=== PATIENT | female | born 1965 | race Caucasian/White ===

== ENCOUNTER 2017-12-13 14:46 | Emergency (ER) | payer SELFPAY ==
[2017-12-13 16:40] LABS: CALCIUM 8.7 mg/dL (8.5-10.3); CREATININE 0.6 mg/dL (0.4-1.0)
[2017-12-13 16:46] LABS: BASOPHILS # (AUTO) 0.1 10^3/uL (0.0-0.1); BASOPHILS % (AUTO) 0.8 %; EOSINOPHILS # (AUTO) 0.1 10^3/uL (0.0-0.7); EOSINOPHILS % (AUTO) 1.4 %; HGB - HEMOGLOBIN 9.9 g/dL (12.0-16.0); LYMPHOCYTES % (AUTO) 19.8 %; MEAN CORPUSCULAR HEMOGLOBIN 16.4 pg (27.0-31.0); MEAN CORPUSCULAR HGB CONC 29.9 g/dL (32.0-36.0); MEAN CORPUSCULAR VOLUME 54.7 fL (81.0-99.0); MEAN PLATELET VOLUME 8.6 fL (7.9-10.8); MONOCYTES # (AUTO) 0.4 10^3/uL (0.0-1.0); MONOCYTES % (AUTO) 4.4 %; NEUTROPHILS # (AUTO) 7.3 10^3/uL (1.5-6.6); NEUTROPHILS % (AUTO) 73.6 %; PLT - PLATELET COUNT 249 10^3/uL (130-450); RED BLOOD COUNT 6.07 10^6/uL (4.20-5.40); RED CELL DISTRIBUTION WIDTH 19.5 % (12.0-15.0); WHITE BLOOD COUNT 9.9 x10^3/uL (4.8-10.8)
--- NOTE | 2017-12-13 16:49 | CT Preliminary Report ---
Exam: CT HEAD W/O IMPRESSION: Negative nonenhanced head CT. [facility] SITE ID: [id number]
--- NOTE | 2017-12-13 16:49 | CT Report ---
EXAM: CT HEAD EXAM DATE: 12/13/2017 04:37 PM. CLINICAL HISTORY: R face droop, L arm weakness. COMPARISON: None. TECHNIQUE: Multiaxial CT images were obtained from the foramen magnum to the vertex. Reformats: Coron al. IV contrast: None. In accordance with CT protocol optimization, one or more of the following dose reduction techniques w ere utilized for this exam: automated exposure control, adjustment of mA and/or KV based on patient s ize, or use of iterative reconstructive technique. FINDINGS: Parenchyma: No intraparenchymal hemorrhage. No evidence of mass, midline shift, or CT findings of inf arction. Singh-white differentiation is distinct. Extraaxial Spaces: No subdural or epidural collections identified. Ventricles: Normal in size and position. Sinuses and Orbits: Imaged paranasal sinuses, orbits, and mastoids show no significant abnormality. Bones: No evidence of fracture or calvarial defect. Other: None. IMPRESSION: Negative nonenhanced head CT. [facility] Referring Provider Line: [phone] SITE ID: [id number]
[2017-12-13 17:25] LABS: PLATELET ESTIMATE, MANUAL NORMAL (130-450,000) (NORMAL); PLATELET MORPHOLOGY 1+ GIANT PLATELETS (NORMAL)
--- NOTE | 2017-12-13 18:28 | ED Physician Documentation ---
History of Present Illness - Stated complaint Stated Complaint: FACIAL NUMBNESS,SWELLING - Chief complaint Chief Complaint: Neuro - Additonal information Additional information: hx from pt family translating used the interpretor table but hard to hear even with volume turned up and pt had an easier time communicating through family she states she had twitching to her right cheek a week or two ago then better last night developed weakness to her R \\face - unable to fully close eye, some tearing, trouble chewing also a R sided GILES that feels like "a brain freeze" this has presisted overnight and today she also says her L arm was numb for 1 hr yesterday but not any longer, no ext weakness pmxh DM but she has no PMD so is taking no meds Review of Systems Constitutional: denies: Fever, Chills Cardiac: denies: Chest pain / pressure, Palpitations Respiratory: denies: Dyspnea, Cough GI: denies: Abdominal Pain : denies: Now EGA Musculoskeletal: denies: Neck pain Neurologic: reports: Focal weakness (R face), Numbness (L arm for 1 hr yesterday not today), Headache. denies: Head injury Endocrine: denies: Easy bruising / bleeding Immunocompromised: denies: Immunocompromised PD PAST MEDICAL HISTORY - Past Medical History Past Medical History: No Endocrine/Autoimmune: Type 2 diabetes - Past Surgical History Past Surgical History: No - Present Medications Home Medications: Ambulatory Orders Medication Instructions Recorded Confirmed metFORMIN [Glucophage] 500 mg PO BIDWM #60 tablet 12/13/17 predniSONE [Deltasone] 60 mg PO DAILY 7 Days #18 tablet 12/13/17 - Allergies Allergies/Adverse Reactions: Allergies Allergy/AdvReac Type Severity Reaction Status Date / Time No Known Drug Allergies Allergy Verified 04/30/14 15:23 - Social History Does the pt smoke?: No Smoking Status: Never smoker Does the pt drink ETOH?: No Does the pt have substance abuse?: No - Immunizations Immunizations are current?: Yes - POLST Patient has POLST: No PD ED PE NORMAL - Vitals Vital signs reviewed: Yes - General General: Alert and oriented X 3 - HEENT HEENT: PERRL, EOMI, Other (globes soft, pupils reactive) - Neck Neck: Supple, no meningeal sign - Cardiac Cardiac: RRR - Respiratory Respiratory: No respiratory distress, Clear bilaterally - Abdomen Abdomen: Soft, Non tender - Neuro Neuro: Alert and oriented X 3. No: No motor deficit (R facial droop including forehead) Eye Opening: Spontaneous Motor: Obeys Commands Verbal: Oriented GCS Score: 15 Results - Vitals Vitals: Vital Signs - 24 hr 12/13/17 12/13/17 12/13/17 14:59 17:40 18:58 Temperature 36.5 C 36.6 C 36.7 C Heart Rate 84 79 79 Respiratory 14 16 20 Rate Blood Pressure 154/71 H 163/74 H 167/91 H O2 Saturation 99 99 98 Oxygen O2 Source Room air - EKG (time done) 1647 Rate: Rate (enter#) (87) Rhythm: NSR Ischemia: Other (slightly flattened T waves diffusely and isolated inv T wave in III) - Labs Labs: Laboratory Tests 12/13/17 12/13/17 12/13/17 16:20 16:20 16:20 WBC 9.9 RBC 6.07 H Hgb 9.9 L Hct 33.2 L MCV 54.7 L MCH 16.4 L MCHC 29.9 L RDW 19.5 H Plt Count 249 MPV 8.6 Neut # 7.3 H Lymph # 2.0 [place] # 0.4 Eos # 0.1 Baso # 0.1 Absolute Nucleated RBC 0.00 Nucleated RBC % 0.0 Manual Slide Review Indicated Platelet Estimate NORMAL (130-450,000) Platelet Morphology 1+ GIANT PLATELETS RBC Morph Micro Appear 3+ MICROCYTOSIS ESR 13 Sodium 135 Potassium 3.8 Chloride 100 L Carbon Dioxide 25 Anion Gap 10.0 BUN 10 Creatinine 0.6 Estimated GFR (MDRD) 106 Glucose 304 H Calcium 8.7 Slides for Path Review Indicated - Rads (name of study) CTH Radiology: See rad report (normal) PD MEDICAL DECISION MAKING - ED course ED course: exam at this time is very c/w [place] but pt reported 1 hr of L arm numbness yesterday raised concern of a central process so got CTH which was neg MRI would have higher sensitivity but not available at this time considered obs for MRI but exam with forehead weakness is such a classic [place] do not feel that is needed feel can dc with outpt neuro follow up also her DM is out of control because she is not on meds so will rx metformin and refer to [facility] for ongoing care and noted to be anemic and work up - no old to compare - states hx of - path slide pending - will def need follow up for results which will not be available tonight Departure - Departure Disposition: 01 Home, Self Care Clinical Impression: Vásquez's palsy, Hyperglycemia Anemia Qualifiers: Anemia type: unspecified type Qualified Code(s): D64.9 - Anemia, unspecified Condition: Good Instructions: ED [place] Palsy, ED Hyperglycemia Diabetic Follow-Up: [facility] [Provider Group] Colleen Seo MD [Physician No Access] - ( ) Prescriptions: metFORMIN [Glucophage] 500 mg PO BIDWM #60 tablet predniSONE [Deltasone] 60 mg PO DAILY 7 Days #18 tablet Print Language: Luxembourgish Comments: The CT scan is fine - no tumor or stroke is seen If the symptoms do not resolve in three weeks or if any other numbness or weakness develops you will need further work up such as a MRI and angiograms I have prescribed steroids to help decrease the nerve inflammation and hopefully clear the symptoms sooner However, you also have diabetes and your blood sugar is very high because you are not on medications for diabetes And the steroids are going to make the blood sugar go even higher So I have prescribed metformin which you need to take twice a day And lastly you are anemic. We don't have any old labs to compare so i don't know if it is new. The lab is running is And then you need to follow up with [facility] about the diabetes and anemia and get the results of the blood tests that are still running to get more information about your anemia - it is very important that you get these results
[2017-12-13] MEDS ORDERED: metFORMIN 500 MG TABLET PO STA (19:06)
[2017-12-13] MEDS ORDERED: predniSONE 20 MG TABLET PO STA (19:06)
[2017-12-13 19:32] VITALS: BP 156/80
== END 2017-12-13 19:31 | disposition home or self-care (01) ==
LOC: ED 14:46
DX: G51.0 Bell's palsy (principal); E11.65 Type 2 diabetes mellitus with hyperglycemia; D64.9 Anemia, unspecified; Z79.84 Long term (current) use of oral hypoglycemic drugs
CPT/HCPCS: 36415; 70450; 80048; 85025; 85651; 93005; 99283; 99284; A9270; J7512

== ENCOUNTER 2019-07-16 12:50 | Emergency (ER) | payer SELFPAY ==
[2019-07-16 13:00] VITALS: BP 147/73
[2019-07-16] MEDS ORDERED: BUFFERED LIDOCAINE 10 ML SYRINGE SUBQ STA (14:39)
[2019-07-16] MEDS ORDERED: CLINDAMYCIN 150 MG CAPSULE PO STA (14:39)
--- NOTE | 2019-07-16 14:41 | ED Physician Documentation ---
History of Present Illness - Stated complaint Stated Complaint: FACE SWELLING - Chief complaint Chief Complaint: Heent - History obtained from History obtained from: Patient (About 2 days ago she developed what she thought was a pimple above her lip on the right. She popped it and some pus came out yesterday, but is developed more facial swelling since then. She is a controlled type II diabetic. She denies fevers or chills.) Review of Systems Constitutional: denies: Fever, Chills, Myalgias, Fatigue, Weight Loss GI: reports: Reviewed and negative : reports: Reviewed and negative PD PAST MEDICAL HISTORY - Past Medical History Past Medical History: Yes Endocrine/Autoimmune: Type 2 diabetes - Past Surgical History Past Surgical History: No - Present Medications Home Medications: Ambulatory Orders Medication Instructions Recorded Confirmed Valacyclovir HCl [Valtrex] 1,000 mg PO TID #21 tablet 12/13/17 metFORMIN [Glucophage] 500 mg PO BIDWM #60 tablet 12/13/17 predniSONE [Deltasone] 60 mg PO DAILY 7 Days #18 tablet 12/13/17 Clindamycin HCl [Clindamycin 300MG 300 mg PO Q6H #28 capsule 07/16/19 CAP] - Allergies Allergies/Adverse Reactions: Allergies Allergy/AdvReac Type Severity Reaction Status Date / Time No Known Drug Allergies Allergy Verified 07/16/19 12:57 - Social History Does the pt smoke?: No Smoking Status: Never smoker Does the pt drink ETOH?: No Does the pt have substance abuse?: No - Immunizations Immunizations are current?: Yes - POLST Patient has POLST: No PD ED PE NORMAL - Vitals Vital signs reviewed: Yes - General General: Alert and oriented X 3, No acute distress - HEENT HEENT: PERRL, EOMI, Other (There is a small abscess measuring less than a centimeter around but with still some fluctuance above the right upper lip with some reactive facial swelling down to the middle part of the mandible on the right.) - Neck Neck: Supple, no meningeal sign, No bony TTP - Neuro Neuro: Alert and oriented X 3, Normal speech Results - Vitals Vitals: Vital Signs - 24 hr 07/16/19 12:57 Temperature 36.6 C Heart Rate 85 Respiratory 15 Rate Blood Pressure 147/73 H O2 Saturation 98 Oxygen O2 Source Room air Procedures - Abscess I&D (location) face, R upper lip Preparation: Alcohol, Lidocaine 1% Incision: Incised with scalpel, Purulent drainage, Loculations broken, Culture obtained. No: Packed (too small) Other: Pt tolerated well, Dressing applied, Antibiotic prescribed Departure - Departure Disposition: 01 Home, Self Care Clinical Impression: Facial abscess Condition: Good Record reviewed to determine appropriate education?: Yes Instructions: ED Abscess IandD Prescriptions: Clindamycin HCl [Clindamycin 300MG CAP] 300 mg PO Q6H #28 capsule Comments: We are performing a wound culture, the results should be done in 48-72 hours. If antibiotic change is necessary we will call you. Return if worse in the meantime, especially if you develop increased pain, fevers, cannot keep down the medication. Otherwise follow-up with your physician (or return here) in approximately 2-3 days.
== END 2019-07-16 15:35 | disposition home or self-care (01) ==
LOC: ED 12:50
DX: L02.01 Cutaneous abscess of face (principal); E11.9 Type 2 diabetes mellitus without complications; Z79.84 Long term (current) use of oral hypoglycemic drugs
CPT/HCPCS: 10060; 87070; 87181; 87205; 99283; A9270

== ENCOUNTER 2020-04-14 10:32 | Emergency (ER) | payer SELFPAY ==
[2020-04-14] MEDS ORDERED: DEXAMETHASONE 10 MG/ML VIAL PO STA (12:00)
[2020-04-14] MEDS ORDERED: CHERRY SYRUP 10 ML UDC PO ONE (12:00)
[2020-04-14] MEDS ORDERED: KETOROLAC 60 MG/2 ML VIAL IM STA (12:01)
--- NOTE | 2020-04-14 12:04 | ED Physician Documentation ---
PD HPI BACK PAIN - Stated complaint Stated Complaint: PAIN IN LOWER BACK LEFT SIDE - Chief complaint Chief Complaint: Back Pain - History obtained from History obtained from: Patient, Family - History of Present Illness Timing - onset: How many weeks ago (2) Timing - duration: Weeks (2) Timing - details: Gradual onset, Still present, Waxing and waning Location: Lower, Left Quality: Spasm, Sharp, Similar to prior episodes Associated symptoms: No: Fever, Weakness, Numbness, Incontinent of urine, Unable to urinate, Hematuria, Incontinent of stool Improves with: Rest, Position Worsened by: Movement Similar symptoms before: Diagnosis (sciatica) Recently seen: Not recently seen - Additional information Additional information: Previously well 54-year-old female is developed some pain in her left lower back radiating down her leg and making her leg numb. She has not any difficulty with her bowel or her bladder she has had this happen to her once previously. Review of Systems Constitutional: denies: Fever Nose: denies: Congestion Throat: denies: Sore throat Respiratory: denies: Dyspnea, Cough GI: denies: Vomiting PD PAST MEDICAL HISTORY - Past Medical History Endocrine/Autoimmune: Type 2 diabetes - Past Surgical History Past Surgical History: No - Present Medications Home Medications: Ambulatory Orders Medication Instructions Recorded Confirmed Valacyclovir HCl [Valtrex] 1,000 mg PO TID #21 tablet 12/13/17 metFORMIN [Glucophage] 500 mg PO BIDWM #60 tablet 12/13/17 predniSONE [Deltasone] 60 mg PO DAILY 7 Days #18 tablet 12/13/17 Clindamycin HCl [Clindamycin 300MG 300 mg PO Q6H #28 capsule 07/16/19 CAP] Cyclobenzaprine [Flexeril] 10 mg PO TID PRN #20 tablet 04/14/20 Hydrocodone/Acetaminophen 1 - 2 each PO Q6H PRN #14 tablet 04/14/20 [Hydrocodon-Acetaminophen 5-325] - Allergies Allergies/Adverse Reactions: Allergies Allergy/AdvReac Type Severity Reaction Status Date / Time No Known Drug Allergies Allergy Verified 07/16/19 12:57 - Social History Does the pt smoke?: No Smoking Status: Never smoker Does the pt drink ETOH?: No Does the pt have substance abuse?: No - Immunizations Immunizations are current?: Yes - POLST Patient has POLST: No PD ED PE NORMAL - Vitals Vital signs reviewed: Yes (tachy and hypertensive ) - General General: No acute distress, Well developed/nourished - HEENT HEENT: Atraumatic, PERRL, EOMI - Respiratory Respiratory: No respiratory distress - Back Back: No CVA TTP, No spinal TTP, Other (There is tenderness to the paraspinous muscles on the left side extending down into the sciatic notch.) - Derm Derm: Normal color, Warm and dry, No rash - Extremities Extremities: No deformity, No edema, No calf tenderness / cord - Neuro Neuro: Alert and oriented X 3, electrician master 2-12 intact, No motor deficit, Normal speech Eye Opening: Spontaneous Motor: Obeys Commands Verbal: Oriented GCS Score: 15 - Psych Psych: Normal mood, Normal affect Results - Vitals Vitals: Vital Signs - 24 hr 04/14/20 10:35 Temperature 36.2 C L Heart Rate 115 H Respiratory 18 Rate Blood Pressure 172/84 H O2 Saturation 97 Oxygen O2 Source Room air PD MEDICAL DECISION MAKING - ED course Complexity details: reviewed results, re-evaluated patient, considered differential, d/w patient, d/w family ED course: 54-year-old female with acute sciatica is administered a dexamethasone 10 mg orally and 60 mg of Toradol IM. Departure - Departure Disposition: 01 Home, Self Care Clinical Impression: Sciatica Qualifiers: Laterality: left Qualified Code(s): M54.32 - Sciatica, left side Condition: Stable Instructions: ED Sciatica Follow-Up: [facility] [place] [Provider Group] Prescriptions: Cyclobenzaprine [Flexeril] 10 mg PO TID PRN #20 tablet PRN Reason: Spasms Hydrocodone/Acetaminophen [Hydrocodon-Acetaminophen 5-325] 1 - 2 each PO Q6H PRN #14 tablet PRN Reason: pain
[2020-04-14 12:25] VITALS: BP 172/93
== END 2020-04-14 12:32 | disposition home or self-care (01) ==
LOC: ED 10:32
DX: M54.32 Sciatica, left side (principal); E11.9 Type 2 diabetes mellitus without complications; Z79.84 Long term (current) use of oral hypoglycemic drugs
CPT/HCPCS: 96372; 99283; 99284; A9270

== ENCOUNTER 2020-04-22 18:35 | Emergency (ER) | payer SELFPAY ==
[2020-04-22] MEDS ORDERED: predniSONE 20 MG TABLET PO STA (19:23)
[2020-04-22] MEDS ORDERED: MELOXICAM 7.5 MG TABLET PO STA (19:38)
--- NOTE | 2020-04-22 19:43 | ED Physician Documentation ---
PD HPI BACK PAIN - Stated complaint Stated Complaint: BACK PX - Chief complaint Chief Complaint: Back Pain - History obtained from History obtained from: Patient, Family - History of Present Illness Timing - onset: How many weeks ago (1) Timing - duration: Weeks (1) Timing - details: Gradual onset Pain level max: 7 Pain level now: 6 Location: Lower, Left Quality: Pain, Spasm, Similar to prior episodes Associated symptoms: No: Fever, Weakness, Numbness, Incontinent of urine, Unable to urinate, Hematuria, Incontinent of stool Improves with: Rest Worsened by: Movement Contributing factors: Out of meds. No: Lifting, Twisting, Trauma, Anticoagulated, Cancer, IVDA Recently seen: Emergency Dept (sciatica) Review of Systems Constitutional: denies: Fever, Chills Respiratory: denies: Cough GI: denies: Vomiting, Diarrhea : denies: Dysuria, Frequency, Hesitancy, Now EGA Skin: denies: Rash Musculoskeletal: denies: Neck pain, Back pain Neurologic: denies: Headache PD PAST MEDICAL HISTORY - Past Medical History Past Medical History: Yes Endocrine/Autoimmune: Type 2 diabetes - Past Surgical History Past Surgical History: No - Present Medications Home Medications: Ambulatory Orders Medication Instructions Recorded Confirmed Valacyclovir HCl [Valtrex] 1,000 mg PO TID #21 tablet 12/13/17 metFORMIN [Glucophage] 500 mg PO BIDWM #60 tablet 12/13/17 predniSONE [Deltasone] 60 mg PO DAILY 7 Days #18 tablet 12/13/17 Clindamycin HCl [Clindamycin 300MG 300 mg PO Q6H #28 capsule 07/16/19 CAP] Cyclobenzaprine [Flexeril] 10 mg PO TID PRN #20 tablet 04/14/20 Hydrocodone/Acetaminophen 1 - 2 each PO Q6H PRN #14 tablet 04/14/20 [Hydrocodon-Acetaminophen 5-325] Meloxicam [Mobic] 15 mg PO DAILY PRN #20 tablet 04/22/20 predniSONE [Deltasone] 10 mg PO [id number] #42 tab 04/22/20 - Allergies Allergies/Adverse Reactions: Allergies Allergy/AdvReac Type Severity Reaction Status Date / Time No Known Drug Allergies Allergy Verified 04/22/20 18:49 - Social History Does the pt smoke?: No Smoking Status: Never smoker Does the pt drink ETOH?: No Does the pt have substance abuse?: No - Immunizations Immunizations are current?: Yes - POLST Patient has POLST: No PD ED PE NORMAL - Vitals Vital signs reviewed: Yes - General General: Alert and oriented X 3, No acute distress - HEENT HEENT: PERRL, Moist mucous membranes - Neck Neck: Supple, no meningeal sign - Cardiac Cardiac: RRR, Strong equal pulses - Respiratory Respiratory: No respiratory distress, Clear bilaterally - Abdomen Abdomen: Soft, Non tender, Non distended - Back Back: No CVA TTP, No spinal TTP (Tender to palpation over the left SI joint. No spasm. No step-off or deformity.) - Derm Derm: Warm and dry - Extremities Extremities: No edema, Other (Normal bilateral lower extremity patellar and ankle jerk reflexes. Normal great toe extension bilaterally. no saddle anesthesia) - Neuro Neuro: Alert and oriented X 3, No motor deficit, No sensory deficit - Psych Psych: Normal mood, Normal affect Results - Vitals Vitals: Vital Signs - 24 hr 04/22/20 04/22/20 18:49 19:50 Temperature 36.8 C Heart Rate 120 H 80 Respiratory 18 18 Rate Blood Pressure 172/101 H 145/89 H O2 Saturation 100 98 Oxygen O2 Source Room air PD MEDICAL DECISION MAKING - ED course Complexity details: reviewed results, re-evaluated patient, considered differential (No cauda equina, no spinal epidural abscess, no fracture, no aortic dissection or evidence of aneursym rupture), d/w patient ED course: 54-year-old female with sciatica. We will place on anti-inflammatories and a steroid taper for home. She is well-appearing, nontoxic. Afebrile. No IV drug use. No cauda equina. No fracture. No indication for imaging. Patient is ambulating well. Patient counseled regarding signs and symptoms for which I believe and urgent re-evaluation would be necessary. Patient with good understanding of and agreement to plan and is comfortable going home at this tam e This document was made in part using voice recognition software. While efforts are made to proofread this document, sound alike and grammatical errors may occur. Departure - Departure Disposition: 01 Home, Self Care Clinical Impression: Sciatica Qualifiers: Laterality: left Qualified Code(s): M54.32 - Sciatica, left side Condition: Good Instructions: ED Sciatica Follow-Up: Your,doctor in 1 week [Other] Prescriptions: predniSONE [Deltasone] 10 mg PO [id number] #42 tab Meloxicam [Mobic] 15 mg PO DAILY PRN #20 tablet PRN Reason: pain Comments: Continue to gently stretch your back at home. This pain may last for 2 to 3 weeks. Return if you worsen. Follow-up with your doctor for further care. You may need physical therapy. Discharge Date/Time: 04/22/20 19:50
[2020-04-22 19:51] VITALS: BP 145/89
[2020-04-23] MEDS ORDERED: MELOXICAM 7.5 MG TABLET PO SCH (09:00)
== END 2020-04-22 19:50 | disposition home or self-care (01) ==
LOC: ED 18:35
DX: M54.32 Sciatica, left side (principal); E11.9 Type 2 diabetes mellitus without complications; Z79.84 Long term (current) use of oral hypoglycemic drugs
CPT/HCPCS: 99282; 99284; A9270; J7512

== ENCOUNTER 2021-03-29 09:12 | Emergency (ER) | payer SELFPAY ==
--- NOTE | 2021-03-29 09:24 | ED Physician Documentation ---
PD HPI HEENT - Stated complaint Stated Complaint: FACE PX - History obtained from History obtained from: Patient - History of Present Illness Timing - onset: Yesterday (onset of feeling left face weakness, with some pain at left upper tooth and preauricular area. No noted swelling, but some pain with chewing. Today having increased weakness left face, and difficulty swallowing with straw, completely closing left eye, nor moving left face.) Timing - duration: Days (2) Timing - details: Gradual onset Location: Tooth (some pain left upper back tooth), Other (no pain in face, but has progressive weakness.) Worsens: Swalllowing Associated symptoms: No: Fever, Congestion Similar symptoms before: Diagnosis (had Vásquez Palsy few years ago, lasted about a month before resolved fully. Has lived this area for 21 years, and no recent travel to [place] areas nor tick bites.) Recently seen: Not recently seen Review of Systems Constitutional: denies: Fever Eyes: denies: Loss of vision Ears: denies: Loss of hearing, Ear pain, Drainage/discharge Nose: denies: Rhinorrhea / runny nose, Congestion Throat: reports: Dental pain / toothache. denies: Oral lesions / sores Skin: denies: Rash, Lesions Neurologic: reports: Focal weakness (left face, but no involvement arm nor leg.) PD PAST MEDICAL HISTORY - Past Medical History Past Medical History: No Cardiovascular: None Respiratory: None Neuro: None Endocrine/Autoimmune: Type 2 diabetes - Past Surgical History Past Surgical History: No - Present Medications Home Medications: Ambulatory Orders Medication Instructions Recorded Confirmed Carboxymethylcellulose Sodium 3 drops LEFTEYE QID #15 ml 03/29/21 [Artificial Tears] cephALEXin [Keflex] 500 mg PO TID 5 Days #15 cap 03/29/21 dexAMETHasone [Decadron] 4 mg PO DAILY #7 tablet 03/29/21 - Allergies Allergies/Adverse Reactions: Allergies Allergy/AdvReac Type Severity Reaction Status Date / Time No Known Drug Allergies Allergy Verified 03/29/21 09:29 - Social History Does the pt smoke?: No Smoking Status: Never smoker Does the pt drink ETOH?: No Does the pt have substance abuse?: No - Immunizations Immunizations are current?: Yes - POLST Patient has POLST: No PD ED PE NORMAL - Vitals Vital signs reviewed: Yes - General General: Alert and oriented X 3, No acute distress, Well developed/nourished - HEENT HEENT: Moist mucous membranes, Pharynx benign. No: Dentition benign (some mild caries. Mild tender along left upper gumline without notable fluctuance nor swelling. No facial swelling. ) - Neck Neck: Supple, no meningeal sign, No adenopathy - Cardiac Cardiac: RRR, No murmur - Respiratory Respiratory: Clear bilaterally - Derm Derm: Normal color, Warm and dry, No rash - Neuro Neuro: Alert and oriented X 3, No sensory deficit, Normal speech, Other (left facial weakness including forehead. Normal strength, movement and coordination of arms and legs. ) Results - Vitals Vitals: Oxygen O2 Source Room air - Labs Labs: Laboratory Tests 03/29/21 10:31 POC Whole Bld Glucose 384 H PD MEDICAL DECISION MAKING - ED course Complexity details: considered differential (findings very c/w Vásquez Palsy. Has had some tooth pain and slight gum tenderness. So consider dental infection as local pressure/inflammation of facial nerve, though not palpable mass at lateral face. ), d/w patient, d/w family (daughter), other (translation tablet) Departure - Departure Disposition: 01 Home, Self Care Clinical Impression: Vásquez palsy Condition: Stable Record reviewed to determine appropriate education?: Yes Instructions: ED [place] Palsy Prescriptions: Carboxymethylcellulose Sodium [Artificial Tears] 3 drops LEFTEYE QID #15 ml dexAMETHasone [Decadron] 4 mg PO DAILY #7 tablet cephALEXin [Keflex] 500 mg PO TID 5 Days #15 cap Print Language: Greenlandic Comments: Decadron steroid for inflammation of the facial nerve. Cephalexin for potential dental infection related to this. Artificial tears to the eye periodically to keep it from being dry. Discharge Date/Time: 03/29/21 11:24
[2021-03-29] MEDS ORDERED: DEXAMETHASONE 10 MG/ML VIAL PO STA (10:23)
[2021-03-29] MEDS ORDERED: CHERRY SYRUP 10 ML UDC PO ONE (10:23)
[2021-03-29] MEDS ORDERED: cephALEXin 250 MG CAPSULE PO STA (10:23)
[2021-03-29 11:26] VITALS: BP 133/79
== END 2021-03-29 11:24 | disposition home or self-care (01) ==
LOC: ED 09:12
DX: G51.0 Bell's palsy (principal)
CPT/HCPCS: 99283; 99284; A9270